=== PATIENT | female | born 1975 | race Caucasian/White ===

== ENCOUNTER 2023-07-08 09:51 | Emergency (ER) | payer OTHER, BC, SELFPAY ==
--- NOTE | 2023-07-08 09:58 | ED.URI ---
HPI - URI/Sore Throat General Chief Complaint: Upper Respiratory Infection Stated Complaint: sore throat, Pos home COVID test earlier this week Time Seen by Provider: 07/08/23 09:57 Source: patient Mode of arrival: ambulatory Limitations: no limitations History of Present Illness HPI Narrative: Juany is a 48-year-old female patient presenting to the clinic today with c/o sore throatx 3 days. States she did not feel well 3 days ago and has tested herself for COVID and that was positive. States that her sore throat is gradually getting worse. Highest fever was 101. She does report some nasal congestion. Denies any shortness of breath or chest pain at this time. MD elicited complaint: sore throat and nasal congestion Related Data Home Medications Medication Instructions Recorded Confirmed anastrozole 1 mg tablet mg 07/08/23 dulaglutide 1.5 mg/0.5 mL mg subcut 07/08/23 subcutaneous pen injector (Trulicity) escitalopram oxalate 10 mg tablet mg 07/08/23 hydrochlorothiazide 12.5 mg capsule mg 07/08/23 levothyroxine 100 mcg tablet mcg 07/08/23 losartan 25 mg tablet mg 07/08/23 metformin 500 mg tablet,extended mg PO 07/08/23 release 24 hr Allergies Allergy/AdvReac Type Severity Reaction Status Date / Time amoxicillin Allergy Unknown Unknown Verified 07/08/23 10:05 lisinopril AdvReac Cough Verified 07/08/23 10:05 Review of Systems Review of Systems: Pertinent positives per HPI. Patient denies any rash, headache, visual changes, dizziness, shortness of breath, chest pain, palpitations, nausea, vomiting, diarrhea, constipation, abdominal pain, or any urinary issues. [facility] Family History Family History Grandparent Cerebrovascular accident Mother Family history of diabetes mellitus in first degree relative Family history of malignant neoplasm of breast in first degree relative Social History Social History Smoking status: Former smoker Alcohol intake: current Comments At the time of my signature, I reviewed and agree with the nursing past medical, surgical, social, and family history. There is no relevant family history pertinent to the patient complaint. Exam Narrative: General: Well-developed, well nourished, in no apparent distress Head: Normocephalic, atraumatic Eyes: Pupils equally round and reactive to light bilaterally, EOM intact, sclera and conjunctive clear, no discharge, lids normal Ears: TMs intact and congestion, ear canals clear, no drainage, grossly hearing normal. Nose: Nares patent, clear discharge, no inflammation, no sinus tenderness. Mouth: Oral pharynx red with exudate to the left tonsil with mild tonsillar enlargement, no masses, good dentition, MMM. Neck: Supple, trachea midline, enlargement of anterior cervical nodes, no thyroid masses or goiter palpable. Cardio: Regular rate and rhythm, s1 and s2 normal, no murmur appreciated. Resp: Clear to auscultation bilaterally, no rhonchi, rales, wheezing or rubs Course Course Emergency Course: Portions of this record may have been created with voice recognition software. Level of Care: Express Care Visit Vital Signs Vital signs: Vital signs reviewed MDM - URI/Sore Throat MDM Narrative Medical decision making narrative: At the time of visit patient is resting on the exam table. Strep test was performed and was negative in the clinic today. Patient tested positive for COVID earlier this week. Supportive measures were discussed with the patient she voiced understanding discharge instructions agrees to treatment plan. We will send strep for culture if this comes back positive we will contact her and put her on antibiotics at that time Differential Diagnosis Differential diagnosis: Likely upper respiratory infection, otitis media, sinusitis, viral infection, bronchitis, influenza, pharyngit
[2023-07-08 10:06] VITALS: BP 141/98; PULSE 83; RESP 16; TEMP 37.7; O2SAT 100
== END 2023-07-08 10:26 | disposition home or self-care (01) ==
PROVIDERS: Emergency Provider Nurse Practitioner Family
DX: U07.1 COVID-19 (principal); J02.9 Acute pharyngitis, unspecified; Z87.891 Personal history of nicotine dependence
CPT/HCPCS: 87081; 87880; 99213; G0463